=== PATIENT | female | born 1945 | race Caucasian/White ===

== ENCOUNTER 2022-09-01 10:35 | Outpatient (RCR) | payer MEDICARE, MEDICAID, SELFPAY | END 2023-05-13 10:36 | disposition home or self-care (01) | LOC: HO.WCC 10:35 | PROVIDERS: PCP Nurse Practitioner Adult Health; Visit Provider Surgery | DX: L89.620 Pressure ulcer of left heel, unstageable (principal); S91.301A Unspecified open wound, right foot, initial encounter; G35 Multiple sclerosis; Z79.899 Other long term (current) drug therapy | CPT/HCPCS: 11042; 17250; 97597; 99212; 99213 ==

== ENCOUNTER 2024-01-17 | Outpatient (RCR) | payer MEDICARE, SELFPAY | END 2024-01-17 09:00 | disposition home or self-care (01) | LOC: HO.WCC | PROVIDERS: PCP Nurse Practitioner Adult Health; Visit Provider Surgery | DX: L89.156 Pressure-induced deep tissue damage of sacral region (principal); G62.9 Polyneuropathy, unspecified; I12.9 Hypertensive chronic kidney disease with stage 1 through stage 4 chronic kidney disease, or unspecified chronic kidney disease; N18.30 Chronic kidney disease, stage 3 unspecified; Z87.891 Personal history of nicotine dependence | CPT/HCPCS: 99212 ==